=== PATIENT | female | born 1990 | race American Indian/Alaskan Native ===

== ENCOUNTER 2018-08-11 22:40 | Emergency (ER) | payer OTHER ==
[2018-08-11] MEDS ORDERED: DUONEB *Not for PRN Use IH ONE (23:12)
[2018-08-12 00:03] LABS: Basophils # (Auto) 0.1 K/mm3 (0.0-0.1); Basophils % (Auto) 0.7 % (0.0-1.8); Eosinophils % (Auto) 0.1 % (0.0-4.3); Hematocrit 39.3 % (30.3-42.9); Hemoglobin 12.5 gm/dl (10.1-14.3); Lymphocytes # (Auto) 1.4 K/mm3 (1.2-5.4); Lymphocytes % (Auto) 7.5 % (13.4-35.0); Mean Corpuscular HGB Conc 32 % (30-34); Mean Corpuscular Volume 73 fl (79-97); Monocytes # (Auto) 1.2 K/mm3 (0.0-0.8); Monocytes % (Auto) 6.3 % (0.0-7.3); Platelet Count 321 K/mm3 (140-440); Red Blood Count 5.39 M/mm3 (3.65-5.03); Red Cell Distribution Width 13.9 % (13.2-15.2)
[2018-08-12 00:22] LABS: BUN/Creatinine Ratio 17; Blood Urea Nitrogen 15 mg/dL (7-17); Calcium 9.8 mg/dL (8.4-10.2); Hemolysis Index 2
--- NOTE | 2018-08-12 01:01 | XRay Report ---
PROCEDURE: XR CHEST ROUTINE 2V TECHNIQUE: PA and lateral views of the chest were obtained. HISTORY: chestpain with cough COMPARISONS: None FINDINGS: There is patchy airspace disease in the lingula. The right lung is clear. Pleural fluid is not seen. The heart size is normal. The bones and soft tissues appear normal. IMPRESSION: Patchy airspace disease in the lingula compatible with pneumonia.. This document is electronically signed by Akhil Barros MD., August 12 2018 12:59:00 AM ET
[2018-08-12] MEDS ORDERED: NACL 0.9% 1000 ML 1,000 ML IV ONE (01:54)
[2018-08-12] MEDS ORDERED: DUONEB *Not for PRN Use IH ONE (01:54)
[2018-08-12] MEDS ORDERED: ROCEPHIN/NS 1 GM/50 ML 1 GM/50 ML BAG IV ONE (01:54)
[2018-08-12] MEDS ORDERED: ZITHROMAX 500 MG in NACL 0.9% 250ML 250 ML IV ONE (01:54)
--- NOTE | 2018-08-12 02:19 | Emergency Department Report ---
HPI - General Chief Complaint: Chest Pain Time Seen by Provider: 08/12/18 01:34 - HPI HPI: 28-year-old -[place] female presents to the emergency Department with complaints of a 2 day history of shortness of breath, coughing, wheezing and some intermittent chest and back pains. Today the patient says that her arms felt like they were going numb so she decided to come in to be seen. She has a past medical history of asthma and says that she's been using her albuterol nebulizer and inhalers without much relief. She denies any tobacco use. No recent travel or sick contacts at home. She does not have a primary care physician. ED Past Medical Hx - Past Medical History Previous Medical History?: Yes Hx Asthma: Yes - Surgical History Past Surgical History?: No - Social History Smoking Status: Never Smoker Substance Use Type: None - Medications Home Medications: Home Medications Medication Instructions Recorded Confirmed Last Taken Type ALBUTEROL Inhaler (OR & NICU) 2 puff IH QID PRN #1 inhalation 08/12/18 Unknown Rx [ProAir HFA Inhaler] ALBUTEROL NEB's [Proventil 0.083% 2.5 mg IH TID PRN #1 box 08/12/18 Unknown Rx NEBS] Sulfamethoxazole/Trimethoprim 1 each PO BID #14 tablet 08/12/18 Unknown Rx [Bactrim DS TAB] ED Review of Systems ROS: Stated complaint: ASTHMA/YAHIR Other details as noted in HPI Comment: All other systems reviewed and negative Constitutional: chills. denies: fever Eyes: denies: eye pain, vision change ENT: denies: ear pain, throat pain Respiratory: cough, shortness of breath, wheezing Cardiovascular: chest pain. denies: edema, syncope Gastrointestinal: denies: abdominal pain, vomiting Genitourinary: denies: dysuria, discharge Musculoskeletal: denies: back pain, arthralgia Skin: denies: rash, lesions Neurological: numbness. denies: headache Physical Exam - Physical Exam Vital Signs: Vital Signs 08/11/18 08/12/18 08/12/18 22:59 01:47 01:49 Temperature 98.3 F 98.4 F Pulse Rate 97 H 79 Respiratory 16 18 18 Rate Blood Pressure 112/78 Blood Pressure 120/85 [Left] O2 Sat by Pulse 100 100 Oximetry Physical Exam: GENERAL: The patient is well-developed well-nourished. HEENT: Normocephalic. Atraumatic. Patient has moist mucous membranes. EYES: Extraocular motions are intact. Pupils are equal and reactive to light bilaterally. NECK: Supple. Trachea is midline. CHEST/LUNGS: Mild left basilar rhonchi. No tachypnea or accessory muscle use. Occasional cough heard. There is no respiratory distress noted. HEART/CARDIOVASCULAR: Regular. There is no tachycardia. There is no obvious murmur. ABDOMEN: Abdomen is soft, nontender. Patient has normal bowel sounds. There is no abdominal distention. SKIN: Skin is warm and dry. NEURO: The patient is awake, alert, and oriented. The patient is cooperative. The patient has no focal neurologic deficits. The patient has normal speech. MUSCULOSKELETAL: There is no tenderness or deformity. There is no limitation range of motion. There is no evidence of acute injury. ED Course Vital Signs 08/11/18 08/12/18 08/12/18 22:59 01:47 01:49 Temperature 98.3 F 98.4 F Pulse Rate 97 H 79 Respiratory 16 18 18 Rate Blood Pressure 112/78 Blood Pressure 120/85 [Left] O2 Sat by Pulse 100 100 Oximetry ED Medical Decision Making - Lab Data Result diagrams: 08/11/18 23:29 08/11/18 23:29 - EKG Data -: EKG Interpreted by De EKG shows normal: sinus rhythm, axis, intervals (prolonged QTC), QRS complexes, ST-T waves (nonspecific T waves) Rate: normal - EKG Data When compared to previous EKG there are: previous EKG unavailable Interpretation: other (sinus rhythm, nonspecific T waves, prolonged QTC) - Radiology Data Radiology results: report reviewed PROCEDURE: XR CHEST ROUTINE 2V TECHNIQUE: PA and lateral views of the chest were obtained. HISTORY: chestpain with cough COMPARISONS: None FINDINGS: There is patchy airspace disease in the lingula. The right lung is clear. Pleural fluid is not seen. The heart size is normal. The bones and soft tissues appear normal. IMPRESSION: Patchy airspace disease in the lingula compatible with pneumonia.. This document is electronically signed by Patrick Barros MD., August 12 2018 12:59:00 AM ET Transcribed By: RB Dictated By: PATRICK BARROS MD Electronically Authenticated By: PATRICK BARROS MD Signed Date/Time: 08/12/18 0101 PROCEDURE: NM LUNG SCAN PERF/VENT TECHNIQUE: Ventilation and perfusion studies were performed. The patient was administered 14.9 mCi of xenon-133 by single deep breath. The equilibrium imaging was obtained along with washout images. The patient was also injected intravenously with 3.67 mCi of technetium 99m MAA. Multiple images were obtained of the lungs in multiple projections. HISTORY: SOB, CP COMPARISONS: Chest x-ray 08/12/2018 FINDINGS: The ventilation is normal. The perfusion images do not show any defects. IMPRESSION: Normal lung scan. No evidence of pulmonary embolus.. This document is electronically signed by Patrick Barros MD., August 12 2018 02:50:28 AM ET Transcribed By: RB Dictated By: PATRICK BARROS MD Electronically Authenticated By: PATRICK BARROS MD Signed Date/Time: 08/12/18 0252 - Medical Decision Making Patient presents with a two-day history of some shortness of breath, interm ittent chest and back pains, coughing. Patient has a history of asthma and says that something is exacerbating her asthma. On examination I do not hear any significant wheezing but she does have a little bit of rhonchi heard at the bases. There is no respiratory distress seen. EKG does not show any signs of ST elevation [place]. Patient's labs show a leukocytosis of 18,000. Chest x-ray shows some patchy airspace disease towards the left lower lobe and lingular area concerning for pneumonia. Patient was given some IV fluid resuscitation, breathing treatments and a dose of antibiotics. She was reevaluated multiple times over multiple hours and is feeling improved. Patient discharged home with antibiotics, refill of her albuterol inhaler and nebulizer and referrals for primary care. She will return to the ER with any worsening of her symptoms or any acute distress. Vital signs stable throughout her ED course. - Differential Diagnosis asthma, COPD, pneumonia, PE, CHF Critical Care Time: No Critical care attestation.: If time is entered above; I have spent that time in minutes in the direct care of this critically ill patient, excluding procedure time. ED Disposition Clinical Impression: Pneumonia Qualifiers: Pneumonia type: due to unspecified organism Laterality: left Lung location: unspecified part of lung Qualified Code(s): J18.9 - Pneumonia, unspecified organism Disposition: DC-01 TO HOME OR SELFCARE Is pt being admited?: No Condition: Stable Instructions: Community-acquired Pneumonia (ED) Additional Instructions: Please follow up with a primary care physician. Take the antibiotics as prescribed. Return to the emergency Department with any worsening of your symptoms or any acute distress. Prescriptions: Sulfamethoxazole/Trimethoprim [Bactrim DS TAB] 1 each PO BID #14 tablet ALBUTEROL Inhaler (OR & NICU) [ProAir HFA Inhaler] 2 puff IH QID PRN #1 inhalation PRN Reason: Shortness Of Breath ALBUTEROL NEB's [Proventil 0.083% NEBS] 2.5 mg IH TID PRN #1 box PRN Reason: Wheezing Referrals: LITTLETON LANDRYJUAN ALBERTO BLUE MD [Primary Care Provider] - 3-5 Days JULIO ESTRADA DO [Staff Physician] - 3-5 Days MELINDA MONTAÑO MD [Staff Physician] - 3-5 Days [facility] [Outside] - 3-5 Days Forms: Work/School Release Form(ED) Time of Disposition: 04:48
--- NOTE | 2018-08-12 02:52 | Nuclear Medicine Report ---
PROCEDURE: NM LUNG SCAN PERF/VENT TECHNIQUE: Ventilation and perfusion studies were performed. The patient was administered 14.9 mCi o f xenon-133 by single deep breath. The equilibrium imaging was obtained along with washout images. Th e patient was also injected intravenously with 3.67 mCi of technetium 99m MAA. Multiple images were o btained of the lungs in multiple projections. HISTORY: SOB, CP COMPARISONS: Chest x-ray 08/12/2018 FINDINGS: The ventilation is normal. The perfusion images do not show any defects. IMPRESSION: Normal lung scan. No evidence of pulmonary embolus.. This document is electronically signed by Akhil Barros MD., August 12 2018 02:50:28 AM ET
[2018-08-12] MEDS ORDERED: ZOFRAN IV ONE (03:41)
[2018-08-12 05:06] VITALS: BP 124/79
== END 2018-08-12 05:06 | disposition home or self-care (01) ==
LOC: ED 22:40
DX: J18.9 Pneumonia, unspecified organism (principal); J45.909 Unspecified asthma, uncomplicated
CPT/HCPCS: 36415; 71046; 78582; 80048; 84703; 85025; 93005; 93010; 94640; 96365; 96368; 96375; 99284; A9540; A9558; J0456; J0696; J2405; J7030; J7050